=== PATIENT | female | born 1930 | race Caucasian/White ===

== ENCOUNTER 2016-06-15 12:14 | Inpatient (IN) | payer OTHER, BC ==
--- NOTE | 2016-06-15 12:41 | CPEKG ---
Heart Rate: 107 RR Interval: 561 QRSD Interval: 90 QT Interval: 360 QTC Interval: 481 QRS [place]: -30 T Wave [place]: -85 EKG Severity - ABNORMAL ECG - EKG Impression: ATRIAL FIBRILLATION EKG Impression: LEFT AXIS DEVIATION EKG Impression: CONSIDER ANTEROSEPTAL INFARCT EKG Impression: ABNORMAL T, CONSIDER ISCHEMIA, DIFFUSE LEADS Electronically Signed By: Lavelle Villanueva 15-Jun-2016 20:26:03
--- NOTE | 2016-06-15 12:53 | EDPHY ---
H & P Stated Complaint: Sent by PCP for eval abnl EKG. Denies CP Time Seen by Provider: 06/15/16 12:52 - Personal History Current Tetanus Diphtheria and Acellular Pertussis (TDAP): Yes - Medical/Surgical History Hx Asthma: No Hx Chronic Respiratory Disease: No Hx Diabetes: No Hx Cardiac Disease: Yes Hx Renal Disease: No Hx Cirrhosis: No Hx Alcoholism: No Hx HIV/AIDS: No Hx Splenectomy or Spleen Trauma: No Other PMH: TIA, hx paroxysmal Afib, amyloid angiopathy, seizures, 2011- parathyroidectomy, basal cell removal on nose, - Social History Smoking Status: Never smoked Constitutional: Initial Vital Signs Temperature (C) 36.7 C 06/15/16 12:20 Heart Rate 101 H 06/15/16 12:20 Respiratory Rate 18 06/15/16 12:20 Blood Pressure 132/94 H 06/15/16 12:20 O2 Sat (%) 95 06/15/16 12:20 O2 Delivery Mode Room Air Allergies/Adverse Reactions: No Known Allergies Allergy (Verified 06/15/16 12:24) Home Medications: Medication Instructions Recorded Calcium Citrate W/Vit D [Citracal 2 each PO DAILY 04/08/13 + D] Cholecalciferol Vit D3 [Vitamin D3 2,000 units PO DAILY 04/08/13 1000 units (OTC)] Dabigatran Etexilate Mesyl 150 mg PO BID 04/08/13 [Pradaxa 150 MG (RX)] Hydrocortisone 1% [Hydrocortisone 1 nina TP PRN PRN 04/08/13 1% cream (OTC)] Metoprolol Succinate Xr [Toprol Xl] 12.5 mg PO HS 04/08/13 Medical Decision Making - Diagnostics Imaging Results: Imaging Impressions Chest X-Ray 06/15/16 13:09 Impression: Congestive heart failure. ED Course/Re-evaluation: CHIEF COMPLAINT: Atrial fibrillation. HISTORY OF PRESENT ILLNESS: The patient is an 85-year-old female with a remote history of atrial fibrillation who presents with atrial fibrillation that was first noticed on Sunday by her PCP. She was sent in to the ED today after an EKG showed t-wave changes. She is complaining of intermittent shortness of breath over the past week but has no other complaints. She denies chest pain, fever, recent sickness, cough. Her doctor started her on Metoprolol Sunday. She is not anticoagulated. REVIEW OF SYSTEMS: A 10 point review of systems was performed and is negative with the exception of the elements mentioned in the history of present illness. PHYSICAL EXAM: HR, BP, O2 Sat, RR. Temp noted General Appearance: Alert, well hydrated, appropriate, and non-toxic appearing. Head: Atraumatic without scalp tenderness or obvious injury Eyes: Pupils equal, round, reactive to light and accommodation, EOMI, no trauma , no injection. Ears: Clear bilaterally, no perforation, normal landmarks Nose: Atraumatic, no rhinorrhea, clear. Throat: There is no erythema or exudates, no lesions, normal tonsils, mucus membranes moist. Neck: Supple, 2+ carotid upstroke, nontender, no lymphadenopathy. Respiratory: No retractions, no distress, no wheezes, and no accessory muscle use. Lungs are clear to auscultation bilaterally. Cardiovascular: Irregularly irregular, no murmurs, rubs, or gallops. Bilateral carotid, radial, dorsalis pedis, and posterior tibial pulses intact. Good capillary refill all extremities. Gastrointestinal: Abdomen is soft, nontender, non-distended, no masses, no rebound, no guarding, no peritoneal signs. Musculoskeletal: Normal active ROM of all extremities, atraumatic. Neurological: Alert, appropriate, and interactive. The patient has normal DTRs and non-focal cranial nerves, motor, sensory, and cerebellar exam. Skin: No rashes, good turgor, no nodules on palpation. Past medical history: Atrial fibrillation, TIA, amyloid angiopathy, seizures. Past surgical history: Parathyroidectomy, basal cell carcinoma removal. Social history: . DIAGNOSTICS/PROCEDURES/CRITICAL CARE TIME: The 12 lead EKG was interpreted by myself. See hard copy and/or "tracemaster" electronic copy for interpretation. Atrial fibrillation. Ischemic t-wave changes in anterolateral leads compared to previous EKG from 2013. DIFFERENTIAL DIAGNOSIS: The differential diagnosis for the patient's shortness of breath and hypoxemia included but was not limited to pneumonia, myocardial infarction, acute mountain sickness, high altitude pulmonary edema, congestive heart failure, and pulmonary embolus. MEDICAL DECISION MAKIN-year-old female presents from her PCP for atrial fibrillation and recent EKG changes. She does have a remote history of atrial fibrillation diagnosed by Dr. Mcdermott. Her EKG today compared to a previous EKG from 2013 shows ischemic T- waves in the anterolateral leads. We will check cardiac labs. An IV was established. Chest x-ray obtained. BNP elevated at 4700. I consulted with Dr. Ramírez, cardiology. We discussed work up so far. He recommends admission I consulted with Dr. Sanders who accepts admission. - Data Points Laboratory Results: Laboratory Results 06/15/16 12:55 06/15/16 12:55 06/15/16 06/15/16 12:55 12:55 WBC 7.61 10^3/uL 10^3/uL (3.80-9.50) RBC 5.07 10^6/uL 10^6/uL (4.18-5.33) Hgb 15.4 g/dL g/dL (12.6-16.3) Hct 45.7 % % (38.0-47.0) MCV 90.1 fL fL (81.5-99.8) MCH 30.4 pg pg (27.9-34.1) MCHC 33.7 g/dL g/dL (32.4-36.7) RDW 15.4 % H % (11.5-15.2) Plt Count 206 10^3/uL 10^3/uL (150-400) MPV 10.5 fL fL (8.7-11.7) Neut % (Auto) 75.8 % H % (39.3-74.2) Lymph % (Auto) 15.5 % % (15.0-45.0) [place] % (Auto) 7.5 % % (4.5-13.0) Eos % (Auto) 0.7 % % (0.6-7.6) Baso % (Auto) 0.1 % L % (0.3-1.7) Nucleat RBC Rel Count 0.0 % % (0.0-0.2) Absolute Neuts (auto) 5.77 10^3/uL 10^3/uL (1.70-6.50) Absolute Lymphs (auto) 1.18 10^3/uL 10^3/uL (1.00-3.00) Absolute Monos (auto) 0.57 10^3/uL 10^3/uL (0.30-0.80) Absolute Eos (auto) 0.05 10^3/uL 10^3/uL (0.03-0.40) Absolute Basos (auto) 0.01 10^3/uL L 10^3/uL (0.02-0.10) Absolute Nucleated RBC 0.00 10^3/uL 10^3/uL (0-0.01) Immature Gran % 0.4 % % (0.0-1.1) Immature Gran # 0.03 10^3/uL 10^3/uL (0.00-0.10) Sodium 140 mEq/L mEq/L (134-144) Potassium 4.2 mEq/L mEq/L (3.5-5.2) Chloride 104 mEq/L mEq/L (97-110) Carbon Dioxide 25 mEq/l mEq/l (22-31) Anion Gap 11 mEq/L mEq/L (8-16) BUN 27 mg/dL H mg/dL (7-23) Creatinine 1.0 mg/dL mg/dL (0.6-1.0) Estimated GFR 53 Glucose 102 mg/dL H mg/dL (70-100) Calcium 9.7 mg/dL mg/dL (8.5-10.4) Magnesium 1.9 mg/dL mg/dL (1.6-2.3) Troponin I 0.014 ng/mL ng/mL (0-0.034) NT-Pro-B Natriuret Pep 4700 pg/mL H pg/mL (0-450) Departure - Departure Disposition: [facility] Inpatient Acute Clinical Impression: Atrial fibrillation with rapid ventricular response, Acute electrocardiogram changes CHF (congestive heart failure) Qualifiers: Congestive heart failure type: unspecified congestive heart failure type Congestive heart failure chronicity: unspecified congestive heart failure chronicity Qualified Code(s): I50.9 - Heart failure, unspecified Condition: Fair Referrals: Nan Lal MD [Primary Care Provider] - As per Instructions Report Scribed for: Lavelle Villanueva Report Scribed by: Bryan Appiah Date of Report: 06/15/16 Time of Report: 14:08
[2016-06-15 13:24] LABS: % IMMATURE GRANULYOCYTES 0.4 % (0.0-1.1); ABSOLUTE IMMATURE GRANULOCYTES 0.03 10^3/uL (0.00-0.10); ADD DIFF? NO; HEMATOCRIT 45.7 % (38.0-47.0); HEMOGLOBIN 15.4 g/dL (12.6-16.3); MEAN CELL HEMOGLOBIN 30.4 pg (27.9-34.1); MEAN CELL HEMOGLOBIN CONCENTR. 33.7 g/dL (32.4-36.7); MEAN CELL VOLUME 90.1 fL (81.5-99.8); MEAN PLATELET VOLUME 10.5 fL (8.7-11.7); PLATELET COUNT 206 10^3/uL (150-400); RED BLOOD CELL COUNT 5.07 10^6/uL (4.18-5.33); RED CELL DISTRIBUTION WIDTH 15.4 % (11.5-15.2)
[2016-06-15 13:25] LABS: ADD MORPH? NO; ADD SCAN? NO; ATYPICAL LYMPHOCYTE FLAG 0 (0-99); FRAGMENT RBC FLAG 0 (0-99); LEFT SHIFT FLG 0 (0-99); LIPEMIA HEMOLYSIS FLAG 80 (0-99); PLATELET CLUMPS FLAG 10 (0-99)
[2016-06-15 13:28] LABS: ANION GAP 11 mEq/L (8-16); CARBON DIOXIDE 25 mEq/l (22-31); CHLORIDE 104 mEq/L (97-110); POTASSIUM 4.2 mEq/L (3.5-5.2); SODIUM 140 mEq/L (134-144)
[2016-06-15 13:29] LABS: CALCIUM 9.7 mg/dL (8.5-10.4); GLOMERULAR FILTRATION RATE 53; GLUCOSE 102 mg/dL (70-100); MAGNESIUM 1.9 mg/dL (1.6-2.3)
[2016-06-15 13:40] LABS: TROPONIN I 0.014 ng/mL (0-0.034)
[2016-06-15] MEDS: NS 500 ML IV SCH ×2 (14:30→16:01)
[2016-06-15] MEDS ORDERED: ONDANSETRON 4 MG/2 ML VIAL IVP PRN (14:56)
[2016-06-15] MEDS ORDERED: ACETAMINOPHEN 325 MG TAB PO PRN (14:56)
[2016-06-15] MEDS ORDERED: ONDANSETRON DISINTEGRATING 4 MG TAB PO PRN (14:56)
[2016-06-15] MEDS ORDERED: METOPROLOL TARTRATE 25 MG TAB PO ONE (14:59)
[2016-06-15] MEDS ORDERED: FUROSEMIDE 20 MG/2 ML VIAL IVP ONE (15:00)
--- NOTE | 2016-06-15 15:32 | GHP ---
[f rep st] HISTORY AND PHYSICAL DATE OF ADMISSION: 06/15/2016 CHIEF COMPLAINT: Atrial fibrillation with RVR. HISTORY OF PRESENT ILLNESS: This is an 85-year-old female who was sent in by her primary care physi luis for atrial fibrillation. She went to have her ears checked on Sunday, and physician noted that to her heart was rapid. She was then sent down immediately to see her PCP, Dr. Lal, on Sunday. At that point, Dr. Lal noted that she was in atrial fibrillation, started metoprolol. She had a followup today where her PCP noted that her EKG showed ischemic-appearing T-waves which were new. She was thus sent to the ED for further workup. She has no chest pain. She notes that since she w as told that she was in atrial fibrillation she has been very short of breath with minimal exertion. She does not think that this began before she knew she was in atrial fibrillation however. Last w port gamble she was able to walk quite a distance at her normal pace. She is normally quite active. She buenrostro s had no nausea or vomiting associated with this. She has been in atrial fibrillation in the past, at one point was on Pradaxa. She has also had what sounds as though an intracerebral hemorrhage, sh e tells me 8 years ago, nothing since. She is currently not on Pradaxa. She made the decision with Dr. Mcdermott to stop that years ago. She was only on it for a very short period of time as well. PAST MEDICAL/SURGICAL HISTORY: 1. Atrial fibrillation. 2. Carotid artery stenosis, 50%. 3. Hyperparathyroid, status post parathyroidectomy in 2010. 4. Possible amyloid angiopathy. 5. History of seizures, currently off antiepileptics. MEDICATIONS: Please see medication reconciliation. ALLERGIES: None. FAMILY HISTORY: Parents are . SOCIAL HISTORY: She never drank nor smoked. She lives with her . REVIEW OF SYSTEMS: 10-point review of systems is conducted and is negative except per HPI. PHYSICAL EXAMINATION: VITAL SIGNS: Blood pressure is 139/103, heart rate 100, respiration rate 16, saturating 93% on room air. Temperature is 36.7. GENERAL: The patient is a very pleasant female who is resting in bed comfortably in no acute distress. HEENT: Her mucous membranes to be moist. C ARDIOVASCULAR: Irregularly irregular. She is borderline tachycardic. I do not appreciate any murmu rs, rubs, or gallops. PULMONARY: Her to have mild basilar rales. She is in no respiratory distres s. ABDOMEN: Soft, nontender, nondistended. SKIN: No rash. : No [place]. NEUROLOGIC: Cranial nerve s 2-12 to be intact. She is A and O x3. Motor and sensation to light touch are intact to the upper and lower extremities. PSYCHIATRIC: Normal mood and affect. LABORATORY DATA: CBC is really unremarkable. Basic metabolic panel is normal. Troponin is negative . BNP is 4700. DATA: 1. I personally viewed and interpreted her EKGs. The 1 from today shows her to be in atrial fibrill ation, which is new. She also has significant T-wave inversions in leads V3 and V4. She also has in verted T-waves in inferior leads. 2. Chest x-ray, which I personally viewed and interpreted, shows pulmonary vascular congestion, wor se in the lower lung barrera than the upper. She has pleural effusions as well. IMPRESSION AND PLAN: An 85-year-old female with recurrence of atrial fibrillation in the setting of congestive heart failure and ischemic appearing T-waves on the EKG. 1. Atrial fibrillation: She has had this before but not for some time. She is borderline tachycar dic. She was started on metoprolol 12.5 p.o. twice daily which she has tolerated. I will increase her to 25 p.o. twice daily, and follow her rate. We will wait to discuss with Dr. Ramírez regarding an ticoagulation, possible SAEED cardioversion. As above, she has a history of an intracerebral hemorrha ge and possible amyloid angiopathy. 2. Congestive heart failure: Unclear if this is systolic or diastolic, but it is acute. She has b een getting much more short of breath. I have ordered an echocardiogram. I have given her 1 dose o f furosemide. We will follow this clinically. 3. Ischemic-appearing EKG: As above, will discuss with Dr. Ramírez regarding invasive versus noninvas renzo ischemic evaluation. I will trend troponins. Will check an EKG in the morning. Hopefully show her rate will have slowed at that point, to see if this is rate-related ischemia. 4. History of seizure disorder: She did not tolerate Keppra and is currently off. 5. History of likely transient ischemic attack. 6. Code status: Discussed with her. She and her have both decided to be a do not resuscit ate. I placed this in her chart. 7. Venous thromboembolism risk: She is moderate. However, she is admitted as observation and she m ay need full-dose anticoagulation. I will not start anything at this point, but this may need to be started. /[id number]/MODL
[2016-06-15] MEDS: METOPROLOL TARTRATE 25 MG TAB PO SCH (20:39)
[2016-06-15] MEDS: CALCIUM CARBONATE 500 MG TAB PO SCH (20:40)
[2016-06-16 05:19] LABS: % IMMATURE GRANULYOCYTES 0.4 % (0.0-1.1); ABSOLUTE IMMATURE GRANULOCYTES 0.02 10^3/uL (0.00-0.10); ADD DIFF? NO; ADD MORPH? NO; ADD SCAN? NO; ATYPICAL LYMPHOCYTE FLAG 0 (0-99); FRAGMENT RBC FLAG 0 (0-99); HEMATOCRIT 37.8 % (38.0-47.0); HEMOGLOBIN 12.7 g/dL (12.6-16.3); LEFT SHIFT FLG 0 (0-99); LIPEMIA HEMOLYSIS FLAG 80 (0-99); MEAN CELL HEMOGLOBIN 30.8 pg (27.9-34.1); MEAN CELL HEMOGLOBIN CONCENTR. 33.6 g/dL (32.4-36.7); MEAN CELL VOLUME 91.5 fL (81.5-99.8); MEAN PLATELET VOLUME 10.6 fL (8.7-11.7); PLATELET CLUMPS FLAG 0 (0-99); PLATELET COUNT 163 10^3/uL (150-400); RED BLOOD CELL COUNT 4.13 10^6/uL (4.18-5.33); RED CELL DISTRIBUTION WIDTH 15.2 % (11.5-15.2)
[2016-06-16 05:35] LABS: ANION GAP 6 mEq/L (8-16); CALCIUM 8.6 mg/dL (8.5-10.4); CARBON DIOXIDE 26 mEq/l (22-31); CHLORIDE 107 mEq/L (97-110); CREATININE 0.9 mg/dL (0.6-1.0); GLOMERULAR FILTRATION RATE 59; GLUCOSE 81 mg/dL (70-100); POTASSIUM 3.5 mEq/L (3.5-5.2); SODIUM 139 mEq/L (134-144)
[2016-06-16] MEDS: CALCIUM CARBONATE 500 MG TAB PO SCH ×2 (08:32→22:16)
[2016-06-16] MEDS: METOPROLOL TARTRATE 25 MG TAB PO SCH ×2 (08:32→22:16)
[2016-06-16] MEDS: CYANO/VITAMIN B12 1000 MCG TAB PO SCH (08:32)
[2016-06-16] MEDS ORDERED: FUROSEMIDE 40 MG/4 ML VIAL IVP ONE (09:27)
--- NOTE | 2016-06-16 09:40 | CPEKG ---
Heart Rate: 86 RR Interval: 698 QRSD Interval: 90 QT Interval: 392 QTC Interval: 469 QRS [place]: -16 T Wave [place]: -85 EKG Severity - ABNORMAL ECG - EKG Impression: ATRIAL FIBRILLATION EKG Impression: BORDERLINE LEFT AXIS DEVIATION EKG Impression: CONSIDER ANTEROSEPTAL INFARCT EKG Impression: ABNORMAL T, PROBABLE ISCHEMIA, WIDESPREAD Electronically Signed By: Dio Morel 16-Jun-2016 16:25:30
--- NOTE | 2016-06-16 10:39 | ECHO ---
[id number] + + [address] : : [place] [address] : : [phone] + + Adult Echocardiographic Report + + :Name: MONIKA GARCIA FStudy Date: 06/16/2016 08:36 AM : : Hospital Admission Number: [id number] Loc ation: 203: :: 1930 Gender: Female Height: 66 in : :Age: 85 yrs Race: WH Weight: 120 lb : :Reason For Study: Eval LV Fx : : BSA: 1.6 me ters2 : :History: New onset of Atrial fibrillation : + + MMode/2D Measurements \T\ Calculations IVSd: 0.97 cm LVIDd: 4.4 cm FS: 28.4 % MV Diam: 2.9 cm LVPWd: 1.0 cm LVIDs: 3.1 cm EDV(Teich): 86.4 ml ESV(Teich): 38.8 ml EF(Teich): 55.1 % Ao root diam: 3.0 cm LVOT diam: 1.9 cm ACS: 1.7 cm LVOT area: 2.8 cm2 LA dimension: 3.2 cm Normal Measurement Values: + + :LVIDd (3.5-5.7cm) IVSd (0.6-1.1cm) LVPWd (0.6-1.1cm) Aortic Root (2.0-3.7cm)Left Atrium (1.5-4.0cm): :LV Vol(d) (76-115ml) LV Vol(s) (29-48ml) Ejec Fraction (50-65%)PV Rigoberto (0.6- 1.2m/s) TV Rigoberto (0.4-1.0m/s) : :MV E Rigoberto (0.8-1.0m/s)MV A Rigoberto (0.3-1.0m/s)LVOT Rigoberto (0.7-1.2m/s) Asc Ao Rigoberto ( 0.9-1.8m/s) : + + Doppler Measurements \T\ Calculations MV E max rigoberto: MV V2 max: Ao mean PG: AI max rigoberto: 75.0 cm/sec 131.7 cm/sec 3.5 mmHg 488.7 cm/sec MV max P.9 mmHg Ao V2 mean: AI max P.5 mmHg MV V2 mean: 87.3 cm/sec AI dec slope: 76.3 cm/sec Ao V2 VTI: 24.3 cm229.5 cm/sec2 MV mean P.7 mmHgAVA(I,D): 1.4 cm2 AI P1/2t: 623.6 msec MV V2 VTI: 34.1 cm MV area (1 diam): 6.6 cm2 MVA(VTI): 1.0 cm2 MV Flow area(1diam): 6.6 cm2 LV V1 mean PG: MR max rigoberto: MR(RF 1 diam): SV(MV 1 diam): 0.88 mmHg 533.3 cm/sec 9.4 % 225.2 ml LV V1 mean: MR max PG: SI(MV 1 diam): 42.4 cm/sec 113.8 mmHg 139.9 ml/m2 LV V1 VTI: 12.1 cm SV(LVOT): 34.3 ml PA V2 max: TR max rigoberto: RF(MV,Ao)(1 diam): 51.6 cm/sec 262.0 cm/sec 0.22 PA max PG: TR max P.5 mmHgRF(MV,LVOT) 1.1 mmHg RAP systole: (1diam): 0.85 10.0 mmHg RVSP(TR): 37.5 mmHg Left Ventricle The left ventricle is normal in size. There is normal left ventricular wall thickness. Left ventricular systolic function is low normal. Ejection Fraction = 55%. Right Ventricle The right ventricle is normal in size and function. Atria The left atrium is mildly dilated. Right atrial size is normal. Mitral Valve The mitral valve is normal. There is no evidence of mitral valve prolapse. There is no mitral valve stenosis. There is moderate mitral regurgitation. Tricuspid Valve Normal tricuspid valve. There is mild to moderate tricuspid regurgitation. Right ventricular systolic pressure is normal. Aortic Valve The aortic valve is trileaflet. The aortic valve opens well. There is no aortic stenosis. Mild to moderate aortic regurgitation. Pulmonic Valve The pulmonic valve is normal in structure and function. Trace pulmonic valvular regurgitation. Great Vessels The aortic root is normal size. Pericardium/Pleural There is no pericardial effusion. The rhythm is atrial fibrillation. Conclusion A complete two-dimensional transthoracic echocardiogram was performed (2D, M-mode, Doppler and color flow Doppler). Left ventricular systolic function is low normal. Ejection Fraction = 55%. The right ventricle is normal in size and function. The left atrium is mildly dilated. There is moderate mitral regurgitation. There is mild to moderate tricuspid regurgitation. Right ventricular systolic pressure is normal. The aortic valve is trileaflet. Mild to moderate aortic regurgitation. Trace pulmonic valvular regurgitation. The aortic root is normal size. There is no pericardial effusion. The rhythm is atrial fibrillation. Final Reading Physician: Jeannine Gusman signed on 06/16/2016 10:38 AM Ordering Physician: Davin Sanders Performed By: Uriel Forrester, SETHCS
--- NOTE | 2016-06-16 15:10 | PDCARCONS ---
Cardiology Consult Reason for Consult: Atrial fibrillation Chief Complaint: Slight decrease in stamina Requesting Physician: Jaime History of Present Illness: 85-year-old female with known history of paroxysmal atrial fibrillation complicated by TIA and intracranial bleeding. Patient has been offered anticoagulation in the past, in 2013 she had a trial of Pradaxa but discontinued this based on her research, advanced age, presence of amyloid small vessel disease and concern for recurrent intracranial bleeding. She has done well from a cardiac point of view since that time. Risk for atrial fibrillation included moderate mitral regurgitation mild to moderate aortic regurgitation, LV dilatation. About 2 weeks ago she began noticing a decrease in stamina. She describes herself as a runner, going up and downstairs taking care of her home. She began becoming more short of breath going up the stairs. She denies angina. She has had no PND orthopnea. She denies syncope or near syncope. She denies palpitations. On admission to the hospital she was found to be in recurrent atrial fibrillation with a rapid ventricular response. Her chest x-ray suggested increased vascular markings concerning for heart failure. Metabolic profile did reveal a modestly elevated brain atretic peptide. Cardiac enzymes are negative. I am asked to comment on anticoagulation, yo cardioversion, alternative strategies. On my arrival she is resting comfortably without complaints. She feels with a small amount of supplemental oxygen she has felt much better. She has been diuresing aggressively. She feels back to her baseline today. She denies fever or chills. She has no abdominal pain, diarrhea or constipation. She has no headache, change in vision, change in motor or sensory function. History Information - Allergies/Home Medication List Allergies/Adverse Reactions: No Known Allergies Allergy (Verified 06/15/16 12:24) Home Medications: Calcium Carbonate [Calcium] 500 mg PO BID 06/15/16 [Last Taken 06/15/16] Cholecalciferol Vit D3 [Vitamin D3 (*)] 2,000 units PO DAILY 06/15/16 [Last Taken 06/15/16] Cyanocobalamin [Vitamin B12 (*)] 1,000 mcg PO DAILY 06/15/16 [Last Taken ] Metoprolol Tartrate [Lopressor 25 mg (*)] 25 mg PO BID 06/15/16 [Last Taken 05/29] I have personally reviewed and updated: medical history - Past Medical History atrial fibrillation - Family History Positive for: non-pertinent - Social History Smoking Status: Never smoked Cardiac History - Cardiac History Cardiac Risk Factors: age > 65 Age in Years: 75 or older Sex: Female Congestive Heart Failure History: No Hypertension History: No Stroke/TIA/Thromboembolism History: Yes Vascular Disease History: No Diabetes Mellitus: No [id number] Score: 5{ Physical Exam Temp Pulse Resp BP Pulse Ox 36.4 C 90 16 141/81 H 97 06/16/16 12:00 06/16/16 12:00 06/16/16 12:00 06/16/16 12:00 06/16/16 12:00 O2 (L/minute) 2 Constitutional: no apparent distress, appears nourished Eyes: anicteric sclera Ears, Nose, Mouth, Throat: moist mucous membranes Cardiovascular: systolic murmur, irregularly irregular, No JVD Peripheral Pulses: 1+: carotid (R), carotid (L), femoral (R), femoral (L) Respiratory: no respiratory distress, no rales or rhonchi, No expiratory wheeze Gastrointestinal: normoactive bowel sounds, soft, non-tender abdomen Genitourinary: no bladder fullness Skin: warm, normal color, no rashes or abrasions Musculoskeletal: full muscle strength Neurologic: No weakness Psychiatric: interacting appropriately, not anxious Lymph, Heme, Immunologic: no cervical LAD, no supraclavicular LAD Lab and Imaging 06/16/16 03:57 06/16/16 03:57 WBC 5.59 10^3/uL (3.80-9.50) 06/16/16 03:57 RBC 4.13 10^6/uL (4.18-5.33) L 06/16/16 03:57 Hgb 12.7 g/dL (12.6-16.3) 06/16/16 03:57 Hct 37.8 % (38.0-47.0) L 06/16/16 03:57 MCV 91.5 fL (81.5-99.8) 06/16/16 03:57 MCH 30.8 pg (27.9-34.1) 06/16/16 03:57 MCHC 33.6 g/dL (32.4-36.7) 06/16/16 03:57 RDW 15.2 % (11.5-15.2) 06/16/16 03:57 Plt Count 163 10^3/uL (150-400) 06/16/16 03:57 MPV 10.6 fL (8.7-11.7) 06/16/16 03:57 Neut % (Auto) 66.5 % (39.3-74.2) 06/16/16 03:57 Lymph % (Auto) 21.5 % (15.0-45.0) 06/16/16 03:57 [place] % (Auto) 10.0 % (4.5-13.0) 06/16/16 03:57 Eos % (Auto) 1.4 % (0.6-7.6) 06/16/16 03:57 Baso % (Auto) 0.2 % (0.3-1.7) L 06/16/16 03:57 Nucleat RBC Rel Count 0.0 % (0.0-0.2) 06/16/16 03:57 Absolute Neuts (auto) 3.72 10^3/uL (1.70-6.50) 06/16/16 03:57 Absolute Lymphs (auto) 1.20 10^3/uL (1.00-3.00) 06/16/16 03:57 Absolute Monos (auto) 0.56 10^3/uL (0.30-0.80) 06/16/16 03:57 Absolute Eos (auto) 0.08 10^3/uL (0.03-0.40) 06/16/16 03:57 Absolute Basos (auto) 0.01 10^3/uL (0.02-0.10) L 06/16/16 03:57 Absolute Nucleated RBC 0.00 10^3/uL (0-0.01) 06/16/16 03:57 Immature Gran % 0.4 % (0.0-1.1) 06/16/16 03:57 Immature Gran # 0.02 10^3/uL (0.00-0.10) 06/16/16 03:57 Sodium 139 mEq/L (134-144) 06/16/16 03:57 Potassium 3.5 mEq/L (3.5-5.2) 06/16/16 03:57 Chloride 107 mEq/L (97-110) 06/16/16 03:57 Carbon Dioxide 26 mEq/l (22-31) 06/16/16 03:57 Anion Gap 6 mEq/L (8-16) L 06/16/16 03:57 BUN 29 mg/dL (7-23) H 06/16/16 03:57 Creatinine 0.9 mg/dL (0.6-1.0) 06/16/16 03:57 Estimated GFR 59 06/16/16 03:57 Glucose 81 mg/dL (70-100) 06/16/16 03:57 Calcium 8.6 mg/dL (8.5-10.4) 06/16/16 03:57 Magnesium 1.9 mg/dL (1.6-2.3) 06/15/16 12:55 Troponin I 0.014 ng/mL (0-0.034) 06/16/16 00:15 NT-Pro-B Natriuret Pep 4700 pg/mL (0-450) H 06/15/16 12:55 TSH 3.400 uIU/mL (0.465-4.680) 06/15/16 12:55 Chest X-ray Interpretation: other (Mild cephalization of vessels without acute infiltrate. Normal cardiac silhouette) Visualized and Interpreted EKG results: Yes EKG additional interpertation: Atrial fibrillation with inferolateral ST depression and T-wave inversions. Echocardiogram: Normal LV function with [id number] mitral regurgitation, left ventricular dilatation with preserved systolic function, mild aortic regurgitation. A/P Assessment: Persistent atrial fibrillation of unknown duration initially associated with elevated ventricular response. Contraindications to anticoagulation including advanced age, amyloid angiopathy with history of intercerebral bleed. Elevation brain natretic peptide associated with minimal symptoms of heart failure. Plan: Discussed options for therapy including initiation of anticoagulation with YO cardioversion and continued anticoagulation for at least 30 days. At this point she would not like any invasive/aggressive procedures. She is well versed in anticoagulation at this point would agree to low-dose aspirin. She has done well with gentle diuretic therapy. Would identify dry weight and use diuretics p.r.n. for increasing weight or development of symptoms. Agree with up titration of beta-darlene for rate control. Continue close clinical follow- up. The patient fails to thrive would consider revisit anticoagulation for 30 days and YO cardioversion. She is at a significantly increased risk of recurrent TIA/CVA with a chads Vasc score of at least 5. I have discussed these options with her. We will see how she does with increased beta-darlene overnight along with OT PT therapy. Patient's valvular disease does not require further evaluation at this time. There is no evidence of acute coronary syndrome with negative cardiac enzymes and over 2 weeks of symptoms. Would not pursue further risk stratification at this point. 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 denies: cough, orthopnea, wheezing, hurts to breath Cardiac: lightheadedness. denies: chest pain, edema, irregular heart rate, palpitations, syncope Gastrointestinal/Abdominal: no symptoms reported Genitourinary: no symptoms Musculoskelatal: no symptoms Skin: no symptoms Neurological: no symptoms Hematologic/Lymphatic: no symptoms reported
[2016-06-16] MEDS ORDERED: POTASSIUM CL 20 MEQ TAB PO ONE (17:56)
--- NOTE | 2016-06-16 17:56 | HOSPPROG ---
Hospitalist Progress Note Assessment/Plan: Assessment: 85-year-old female presents with acute diastolic CHF in the setting of permanent atrial fibrillation with acute rapid ventricular response Plan: 1. Diastolic congestive heart failure exacerbation. Acute, evidenced by interstitial infiltrates and effusions, BNP of 4700, most likely secondary to diastolic dysfunction from AFib rate related reduction in cardiac output -given 40 mg of IV Lasix this afternoon, reduced 20 mg IV Lasix tomorrow, then suspect the patient will not require ongoing diuretics as the primary means of improvement include rate control -attempt better rate control with increased dose of metoprolol -echocardiogram demonstrating ejection fraction 55%, no focal wall motion abnormalities -patient continues to require 2 L nasal cannula oxygen, attempt to wean 2. Permanent atrial fibrillation. Acute rapid ventricular response, leading to rate-related diastolic CHF -discussed with Dr Hou, decision made not to DC cardiovert given that the rate is responding to metoprolol increased to 25 mg twice daily and a cardioversion would require patient to receive 1 month of systemic anticoagulation which she is currently declining given her past history of intra cranial hemorrhage -aspirin 81 mg daily for CVA prevention -continue monitor on telemetry overnight to gauge response to up titration of metoprolol, consider 37.5 mg twice daily tomorrow if rates persistently running greater than 100 Diet. Regular Prophylaxis. High risk patient, history of ICH, placed on SCDs Code. Do not resuscitate per patient Disposition. Anticipated discharge is 5/6, upgraded to inpatient admission status given that anticipated length stay is greater than 48 hours for reasonable medical necessity including acute diastolic congestive heart failure exacerbation in the setting of permanent atrial fibrillation with acute rapid ventricular response requiring ongoing IV diuretics as well as telemetry monitoring to ensure rate control with med modification. Subjective: Patient reports that she has been urinating almost constantly this afternoon Objective: Vital Signs Temp Pulse Resp BP Pulse Ox 36.4 C 90 16 141/81 H 97 06/16/16 12:00 06/16/16 12:00 06/16/16 12:00 06/16/16 12:00 06/16/16 12:00 Laboratory Results 06/16/16 03:57 06/16/16 03:57 06/15/16 06/16/16 06/17/16 05:59 05:59 05:59 Intake Total 590 Output Total 954 Balance 590 -954 - Time Spent With Patient Time Spent with Patient: greater than 35 minutes Time Spent with Patient: Greater than 35 minutes spent on this patients care, greater than 50% of time spent counseling, educating, and coordinating care regarding the above mentioned plan. - Physical Exam Constitutional: no apparent distress, appears nourished, not in pain Cardiovascular: irregularly irregular, tachycardia, No edema Respiratory: inspiratory crackles (Bilateral bases), No expiratory wheeze, No bronchial breath sounds Neurologic: AAOx3 Psychiatric: interacting appropriately, not anxious, not encephalopathic, thought process linear ICD10 Worksheet Patient Problems: Problems Problem Status Onset Acute electrocardiogram changes Acute Atrial fibrillation with rapid ventricular response Acute CHF (congestive heart failure) Acute Seizures Acute TIA (transient ischemic attack) Acute
[2016-06-17 05:19] LABS: ANION GAP 7 mEq/L (8-16); CALCIUM 8.8 mg/dL (8.5-10.4); CARBON DIOXIDE 28 mEq/l (22-31); CHLORIDE 105 mEq/L (97-110); CREATININE 0.9 mg/dL (0.6-1.0); GLOMERULAR FILTRATION RATE 59; GLUCOSE 85 mg/dL (70-100); MAGNESIUM 1.9 mg/dL (1.6-2.3); POTASSIUM 3.6 mEq/L (3.5-5.2); SODIUM 140 mEq/L (134-144)
[2016-06-17] MEDS ORDERED: POTASSIUM CL 20 MEQ TAB PO ONE (08:51)
--- NOTE | 2016-06-17 08:51 | HOSPPROG ---
Hospitalist Progress Note Assessment/Plan: A fib / RVR - rate controlled on oral metoprolol, pt has declined anti- coagulation. Cont ASA, BB. Acute diastolic heart failure - improved, but still a bit orthopneic, requiring 2 L O2, and has only minimally diuresed. Will cont lower dose of IV Lasix today and reassess status in am. Likely dc tomorrow, possibly off diuretics as it seems rate control was most important factor in managing her HF. Acute hypoxemic respiratory failure - cont IV Lasix for one more day, wean O2 as able. Dispo - cont inpt, poss dc in am DNR Subjective: Pt feels a bit better, but still reports some orthopnea and SOB, hard to get a full breath. No CP. No fevers. Objective: Vital Signs Temp Pulse Resp BP Pulse Ox 36.6 C 76 20 128/85 H 94 06/17/16 06:00 06/17/16 06:00 06/17/16 06:00 06/17/16 06:00 06/17/16 06:00 Laboratory Results 06/17/16 03:46 - Physical Exam Constitutional: no apparent distress Eyes: PERRL Ears, Nose, Mouth, Throat: moist mucous membranes Cardiovascular: regular rate and rhythym Respiratory: no respiratory distress, other (faint bibasilar crackles) Gastrointestinal: normoactive bowel sounds, soft, non-tender abdomen Skin: warm Musculoskeletal: full muscle strength Neurologic: AAOx3 Psychiatric: interacting appropriately ICD10 Worksheet Patient Problems: Problems Problem Status Onset Acute electrocardiogram changes Acute Atrial fibrillation with rapid ventricular response Acute CHF (congestive heart failure) Acute Seizures Acute TIA (transient ischemic attack) Acute
[2016-06-17] MEDS: FUROSEMIDE 20 MG/2 ML VIAL IVP SCH (09:10)
[2016-06-17] MEDS: ASPIRIN EC 81 MG TAB PO SCH (09:10)
[2016-06-17] MEDS: METOPROLOL TARTRATE 25 MG TAB PO SCH ×2 (09:10→20:46)
[2016-06-17] MEDS: CALCIUM CARBONATE 500 MG TAB PO SCH ×2 (09:10→20:46)
[2016-06-17] MEDS: CYANO/VITAMIN B12 1000 MCG TAB PO SCH (09:10)
[2016-06-18 05:25] LABS: ANION GAP 7 mEq/L (8-16); CALCIUM 9.1 mg/dL (8.5-10.4); CARBON DIOXIDE 30 mEq/l (22-31); CHLORIDE 103 mEq/L (97-110); CREATININE 0.9 mg/dL (0.6-1.0); GLOMERULAR FILTRATION RATE 59; GLUCOSE 93 mg/dL (70-100); POTASSIUM 4.5 mEq/L (3.5-5.2); SODIUM 140 mEq/L (134-144)
[2016-06-18] MEDS: FUROSEMIDE 20 MG/2 ML VIAL IVP SCH (07:56)
[2016-06-18] MEDS: CALCIUM CARBONATE 500 MG TAB PO SCH (07:56)
[2016-06-18] MEDS: ASPIRIN EC 81 MG TAB PO SCH (07:56)
[2016-06-18] MEDS: CYANO/VITAMIN B12 1000 MCG TAB PO SCH (07:56)
[2016-06-18] MEDS: METOPROLOL TARTRATE 25 MG TAB PO SCH (07:57)
[2016-06-18 08:23] VITALS: BP 119/88; PULSE 84; RESP 24; TEMP 97.3; O2SAT 93
--- NOTE | 2016-06-18 14:40 | GDS ---
[f rep st] DISCHARGE SUMMARY DISCHARGE DIAGNOSES: 1. Chronic atrial fibrillation with rapid ventricular response. 2. Acute on chronic diastolic heart failure. 3. Acute hypoxemic respiratory failure secondary to heart failure, resolved. IMAGING STUDIES/PROCEDURES: Echocardiogram, June 15, showed normal left ventricular systolic function with ejection fraction of 55%. Moderate mitral regurgitation and [id number] aortic regurgita tion. HISTORY: For details, please see dictated history and physical dated June 15. In brief, the patient is an 85-year-old female with a history of chronic atrial fibrillation who pre sented to the emergency department at the direction of her primary care physician for rapid atrial f ibrillation. She was also found to have mild acute heart failure and was admitted to the hospital f or further management. HOSPITAL COURSE: Patient was admitted to the Cardiac Telemetry Unit. She was started on metoprolol 12.5 mg p.o. twice daily. This was up-titrated to 37.5 mg p.o. twice daily for improved rate contr ol. Her heart rate has been mostly in the 80s to 90s, with a systolic blood pressure as low as 100/ 70. She seems to be tolerating this dose. She received 3 days of IV Lasix with improvement of her symptoms. A Cardiology consult was obtained and the patient was offered SAEED with cardioversion, tho ugh this would have required a month of anticoagulation. The patient declines anticoagulation. She repeatedly noted that she was DNR and did not want any invasive or aggressive procedures. Therefor e, no further cardiac risk stratification was performed and, as per our Cardiology consultation, her heart valve disease does not require any further evaluation. She has had no evidence of acute coron kobe syndrome with negative cardiac enzymes, and has remained chest pain free. She is stable for dis charge this morning and appears euvolemic. I have given her prescription for Lasix and asked that s he follow her daily weights and use the Lasix p.r.n. if her weight increases by 2-3 pounds to [place]ta in her dry weight. However, I think the bigger issue is rate control in terms of preventing heart f ailure symptoms. She needs to have close followup with her security representative and primary care provider. She agrees to call Dr. Ramírez in the morning for an appointment this week to reassess her rate contro l and volume status. She understands her stroke risk with a CHADS-VASc of 5, though has continued t o decline anticoagulation and is therefore discharged on daily aspirin. DISPOSITION: Patient is discharged home in stable condition. DISCHARGE MEDICATIONS: Please see [facility] for a complete updated outpatient medication list. New medications on discharge include: Aspirin 81 mg p.o. daily, #30, no refills. Lasix 20 mg p.o. daily p.r.n. for weight gain greater than 2-3 pounds. Changed medications include: Metoprolol 37.5 mg p.o. twice daily, #90, no refills. FOLLOWUP: 1. Dr. Clyde Ramírez in 2-3 days to reassess volume status and heart rate control. 2. Dr. Nan Lal, primary care provider. /[id number]/MODL
== END 2016-06-18 10:44 | disposition home or self-care (01) | DRG 308 ==
LOC: INTOOBSV 14:02 → F2W 15:14 → OBSVTOIN 06-16 17:53
PROVIDERS: ADMIT Student in an Organized Health Care Education/Training Program; ATTEND Hospitalist
DX: I48.2 Chronic atrial fibrillation (principal); I50.33 Acute on chronic diastolic (congestive) heart failure; J96.01 Acute respiratory failure with hypoxia; I34.0 Nonrheumatic mitral (valve) insufficiency; Z66 Do not resuscitate
CPT/HCPCS: G0378

== ENCOUNTER → 2017-01-24 | Outpatient (CLI) | payer OTHER, BC | LOC: BMCIMAGING 15:01 | PROVIDERS: ATTEND Internal Medicine | DX: Z13.820 Encounter for screening for osteoporosis (principal); M81.0 Age-related osteoporosis without current pathological fracture ==

== ENCOUNTER → 2017-03-27 | Outpatient (CLI) | payer OTHER, BC | LOC: BMCIMAGING 12:52 | PROVIDERS: ATTEND Internal Medicine | DX: K59.00 Constipation, unspecified (principal) ==

== ENCOUNTER → 2017-06-26 | Outpatient (CLI) | payer OTHER, BC | LOC: FIMAGING 16:33 | DX: I70.0 Atherosclerosis of aorta (principal); M79.606 Pain in leg, unspecified ==

== ENCOUNTER 2017-08-22 12:58 | Emergency (ER) | payer OTHER, BC ==
[2017-08-22] MEDS ORDERED: ASPIRIN 81 MG CHEWABLE TAB PO ONE (13:07)
--- NOTE | 2017-08-22 13:26 | EDPHY ---
H & P Time Seen by Provider: 08/22/17 13:01 HPI/ROS: HPI Speech disturbance, numbness right arm. 86-year-old female by private vehicle with her daughter. This patient has a history of atrial fibrillation. She is currently not on any anticoagulation. At approximately 10:00 a.m., the patient and daughter reports that the patient complained of numbness involving her right arm from her elbow down through her hand and digits. At this time she also had difficulty with word-finding and slurred speech. The symptoms lasted approximately 15 min and then have resolved. Her daughter tells me now that she is close to her baseline mental status and function. She had a similar episode to this on August 16 which also lasted about 10 min. She did not seek medical attention for that episode. 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 ROS: Constitutional: No fever, no chills. As above. Eyes: No discharge. No changes in vision. ENT: No sore throat. No nasal congestion or rhinorrhea. Respiratory: No cough. No shortness of breath. Cardiac: No chest pain, no palpitations. Gastrointestinal: No abdominal pain, no vomiting, no diarrhea. Genitourinary: No hematuria. No dysuria or increased frequency with urination. Musculoskeletal: No back pain. No neck pain. No myalgias or arthralgias. Skin: No rashes. Neurological: No headache. As above. Past medical history: Atrial fibrillation currently not on anticoagulation, carotid artery stenosis of 50%, hyperparathyroidism with parathyroidectomy, history of seizures currently not on antiepileptics, acute on chronic diastolic heart failure. She is a DNR. She is currently on Lasix and metoprolol. Social history: Nonsmoker. Currently here with her daughter. No alcohol. Physical Exam: General Appearance: Alert, pleasant 86-year-old female, no distress. This patient is responding to questions appropriately and in full sentences. This patient appears well-hydrated and well-nourished. Eyes: Pupils equal and round and reactive to light at 3-2 mm bilaterally, no pallor or injection. No lid edema, erythema or injection. ENT, Mouth: Mucous membranes are moist. The pharyngeal tissues are unremarkable. No edema or swelling. No asymmetry suggestive of abscess. No erythema or exudates. No tongue lacerations or abrasions. Respiratory: There are no retractions, lungs are clear to auscultation with good air movement bilaterally. Cardiovascular: Regular rate and rhythm. No murmur appreciated. Gastrointestinal: Abdomen is soft and nontender, no masses, bowel sounds normal. No focal tenderness at McBurney's point. No Ross sign. Neurological: Motor sensory function is grossly intact in all myotomes in dermatomes of the bilateral upper and bilateral lower extremities. Cranial nerves are normal. Gait is normal. Skin: Warm and dry, no rashes. Musculoskeletal: Neck is supple and nontender. Extremities are symmetrical. All joints range without pain or impingement. Psychiatric: No agitation. No depression. Database: EKG: EKG time is 1:25 p.m.; EKG shows a narrow complex normal sinus rhythm with a ventricular rate of 57. Left axis deviation noted. Probable left ventricular hypertrophy. The AL, QRS, QT intervals are within normal limits. There are no ST-T wave changes indicative of ischemic or injury pattern. No evidence of right heart strain. Interpreted by me. Imaging: CT scan of head without contrast: Age-related changes only. Otherwise negative study. Results were discussed with staff radiologist. Carotid artery Doppler ultrasounds: No hemodynamically significant stenosis noted. Please see report by reading radiologist for further details. I personally viewed the images and reviewed interpretation report. I did not speak with the radiologist personally. MRI brain without contrast: Bilateral micro hemorrhages that are not acute significant for for amyloid angiopathy. The patient has a history of this. Otherwise no acute infarction. No other significant abnormalities. Results were discussed with staff radiologist Dr. Pacheco Alfred. Procedures: Emergency department course: Triage vital signs reviewed. She is bradycardic at 52. She currently takes metoprolol at 37.5 mg twice daily. She was given 324 mg of chewed aspirin. I discussed imaging including CT scan of head without contrast as well as carotid artery Dopplers. She and her daughter consent. 1:55 p.m., patient re-evaluated. Discussed results of CT imaging. Discussed obtaining MRI brain without contrast. The patient and daughter consent. Repeat neurologic Assessment is nonfocal. 2:30 p.m., patient re-evaluated. Sitting upright on the gurney. Repeat neurologic Assessment is nonfocal. Results of blood work, EKG discussed. Waiting results on Doppler ultrasounds. Patient is requesting discharged after her MRI. 3:40 p.m., patient re-evaluated. Resting comfortably at this time. Repeat neurologic Assessment is nonfocal. Results of her MRI discussed with her. I did discuss admission for observation and neurology consultation. She does not want to do this. She is requesting discharge. Her daughter is in agreement with her being discharged. The patient competently engages in shared decision making. They demonstrate capacitance to make decisions. The patient will follow up with her neurologist, Dr. Koby Raman, or 1 of his partners later this week for re-evaluation. Return to emergency department precautions were thoroughly reviewed with her. All of her questions were answered. She was discharged from the emergency department in good condition. Differential Diagnosis: The differential diagnosis on this patient includes but is not limited to TIA. CVA, acute coronary syndrome, peripheral neuropathy, seizure unlikely. This represents a partial list of diagnoses considered. These considerations are based on history, physical exam, past history, reassessment and diagnostic testing. Smoking Status: Never smoked Constitutional: Initial Vital Signs Temperature (C) 36.4 C 08/22/17 13:06 Heart Rate 53 L 08/22/17 13:06 Respiratory Rate 16 08/22/17 13:06 Blood Pressure 128/95 H 08/22/17 13:06 O2 Sat (%) 94 08/22/17 13:06 O2 Delivery Mode Room Air Allergies/Adverse Reactions: No Known Allergies Allergy (Verified 06/15/16 12:24) Home Medications: Medication Instructions Recorded Calcium Carbonate [Calcium] 500 mg PO BID 06/15/16 Herbals/Supplements -Info Only 1 ea PO DAILY 06/17/16 Aspirin EC [Aspirin EC 81 mg (*)] 81 mg PO DAILY #30 tab 06/18/16 Furosemide [Lasix 20 MG (*)] 20 mg PO DAILY PRN #30 tab 06/18/16 Metoprolol Tartrate [Lopressor 25 37.5 mg PO BID #90 tab 06/18/16 mg (*)] Medical Decision Making - Diagnostics Imaging Results: Imaging Impressions Carotid Doppler Study 08/22/17 13:07 Impression: Mild interval increase of the peak systolic velocity in the left internal carotid artery. However, no hemodynamically significant stenosis is seen. Head CT 08/22/17 13:07 Impression: 1. Negative for acute intracranial process. 2. Age-appropriate generalized cerebral volume loss with sequelae of chronic microvascular ischemic disease. Brain MRI 08/22/17 13:51 Impression: 1. No acute infarct identified. 2. 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 Chronic bilateral microvascular ischemic white matter change. - Data Points Laboratory Results: Laboratory Results 08/22/17 13:30 08/22/17 13:30 08/22/17 08/22/17 08/22/17 13:31 13:30 13:30 WBC RBC Hgb Hct MCV MCH MCHC RDW Plt Count MPV Neut % (Auto) Lymph % (Auto) Star[place] % (Auto) Eos % (Auto) Baso % (Auto) Nucleat RBC Rel Count Absolute Neuts (auto) Absolute Lymphs (auto) Absolute Monos (auto) Absolute Eos (auto) Absolute Basos (auto) Absolute Nucleated RBC Immature Gran % Immature Gran # PT 14.5 SEC SEC (12.0-15.0) INR 1.11 (0.83-1.16) APTT 32.3 SEC SEC (23.0-38.0) Sodium 137 mEq/L mEq/L (135-145) Potassium 4.5 mEq/L mEq/L (3.3-5.0) Chloride 102 mEq/L mEq/L (97-110) Carbon Dioxide 28 mEq/l mEq/l (22-31) Anion Gap 7 mEq/L L mEq/L (8-16) BUN 24 mg/dL H mg/dL (7-23) Creatinine 1.1 mg/dL H mg/dL (0.6-1.0) Estimated GFR 47 Glucose 120 mg/dL H mg/dL (70-100) Calcium 9.7 mg/dL mg/dL (8.5-10.4) POC Troponin I 0.00 ng/mL ng/mL (0.00-0.08) 08/22/17 13:30 WBC 6.11 10^3/uL 10^3/uL (3.80-9.50) RBC 4.82 10^6/uL 10^6/uL (4.18-5.33) Hgb 14.6 g/dL g/dL (12.6-16.3) Hct 44.3 % % (38.0-47.0) MCV 91.9 fL fL (81.5-99.8) MCH 30.3 pg pg (27.9-34.1) MCHC 33.0 g/dL g/dL (32.4-36.7) RDW 14.1 % % (11.5-15.2) Plt Count 179 10^3/uL 10^3/uL (150-400) MPV 9.9 fL fL (8.7-11.7) Neut % (Auto) 61.3 % % (39.3-74.2) Lymph % (Auto) 28.6 % % (15.0-45.0) Star[place] % (Auto) 8.7 % % (4.5-13.0) Eos % (Auto) 1.0 % % (0.6-7.6) Baso % (Auto) 0.2 % L % (0.3-1.7) Nucleat RBC Rel Count 0.0 % % (0.0-0.2) Absolute Neuts (auto) 3.75 10^3/uL 10^3/uL (1.70-6.50) Absolute Lymphs (auto) 1.75 10^3/uL 10^3/uL (1.00-3.00) Absolute Monos (auto) 0.53 10^3/uL 10^3/uL (0.30-0.80) Absolute Eos (auto) 0.06 10^3/uL 10^3/uL (0.03-0.40) Absolute Basos (auto) 0.01 10^3/uL L 10^3/uL (0.02-0.10) Absolute Nucleated RBC 0.00 10^3/uL 10^3/uL (0-0.01) Immature Gran % 0.2 % % (0.0-1.1) Immature Gran # 0.01 10^3/uL 10^3/uL (0.00-0.10) PT INR APTT Sodium Potassium Chloride Carbon Dioxide Anion Gap BUN Creatinine Estimated GFR Glucose Calcium POC Troponin I Medications Given: Discontinued Medications Aspirin (Aspirin) 324 mg PO EDNOW ONE Stop: 08/22/17 13:08 Last Admin: 08/22/17 13:27 Dose: 324 mg Point of Care Test Results: Chemistry 08/22/17 13:31 POC Troponin I 0.00 ng/mL ng/mL (0.00-0.08) Departure - Departure Disposition: Home, Routine, Self-Care Clinical Impression: TIA (transient ischemic attack) Condition: Good Instructions: Transient Ischemic Attack (ED) Additional Instructions: Read and follow provided instructions. Follow-up with your neurologist, Dr. Koby Raman, or 1 of his partners within the next 1-2 days for re-evaluation as discussed. Call his office this afternoon for appointment time. Explained this is for an emergency department follow-up. Take your medication as prescribed. Return to the emergency department for worsening symptoms or other serious concerns. Referrals: Koby Raman MD [Medical Doctor] - As per Instructions
--- NOTE | 2017-08-22 13:27 | CPEKG ---
Heart Rate: 57 RR Interval: 1053 P-R Interval: 196 QRSD Interval: 88 QT Interval: 456 QTC Interval: 444 P [place]: 71 QRS [place]: -38 T Wave [place]: 36 EKG Severity - ABNORMAL ECG - EKG Impression: SINUS ARRHYTHMIA, RATE 50-66 EKG Impression: LEFT AXIS DEVIATION EKG Impression: PROBABLE LVH WITH SECONDARY REPOL ABNRM Electronically Signed By: Cb Quinn 22-Aug-2017 14:00:01
[2017-08-22 13:39] LABS: PLATELET COUNT 179 10^3/uL (150-400)
[2017-08-22 13:47] LABS: INR 1.11 (0.83-1.16); PROTIME(PATIENT) 14.5 SEC (12.0-15.0)
[2017-08-22 15:51] VITALS: BP 163/100
== END 2017-08-22 15:52 | disposition home or self-care (01) ==
DX: G45.9 Transient cerebral ischemic attack, unspecified (principal); Z79.82 Long term (current) use of aspirin
CPT/HCPCS: 84484-PO

== ENCOUNTER 2017-11-20 06:29 | Emergency (ER) | payer OTHER, BC ==
--- NOTE | 2017-11-20 06:38 | EDPHY ---
H & P Time Seen by Provider: 11/20/17 06:38 HPI/ROS: CHIEF COMPLAINT: Coughing all night HISTORY OF PRESENT ILLNESS: 86-year-old woman has been coughing for the past 4 days. She was awake for some of the night with a nonproductive cough. Not paroxysmal, no hemoptysis, no chest pain, not short of breath, no fever or leg swelling. Symptoms were severe last night but mild in the emergency department this morning. No history of choking or aspiration. Not better or worse with anything. No recent changes in medications. REVIEW OF SYSTEMS: Eye: no change in vision ENT: no sore throat Cardiac: no chest pain or syncope Pulmonary: HPI Abdomen: no vomiting, diarrhea, abdominal pain Musculoskeletal: no back pain Skin: no rash Neuro: no headache Constitutional: no fever : no urinary symptoms A comprehensive 10 point review of systems is otherwise negative aside from elements mentioned in the history of present illness. PAST MEDICAL HISTORY: Includes TIA, paroxysmal or intermittent AFib, seizure disorder. Admission in June of 2016 for diastolic heart failure and atrial fibrillation, history physical dated 06/15/2016 personally reviewed Social history: Nonsmoker, lives independently General Appearance: Alert and conversant, cooperative. Eyes: No scleral icterus. ENT, Mouth: Normal mucous membranes. Normal pharynx without angioedema or erythema. Respiratory: Normal respiratory effort, breath sounds equal, lungs are clear to auscultation. No wheezing or rales or rhonchi. Speaks in full sentences. Cardiovascular: Regular rate and rhythm. Gastrointestinal: Abdomen is soft and non tender. Neurological: Alert, face symmetric, normal motor and sensory in extremities. Skin: Warm and dry, no rashes. Musculoskeletal: No peripheral edema. No calf tenderness. Psychiatric: Not agitated. Emergency Department course/MDM: Patient presents with cough but does not have abnormal lung sounds. Afebrile with normal saturation. 715: Database reviewed includes normal O2 sat, not tachycardic, afebrile. WBC 6.3, normal electrolytes, troponin negative. Chest x-ray does not show infiltrate, EKG does not have acute ST changes and troponin is negative. I think that acute coronary syndrome is unlikely. That is the patient's main concern, that her coughing is or will result in a"heart problem." Reassured, cough medication, outpatient follow-up. Most likely viral URI. 733: Up ambulatory without difficulty or assistance in the hallway, able to easily speak in full sentences while walking. Smoking Status: Never smoked Constitutional: Initial Vital Signs Temperature (C) 36.7 C 11/20/17 06:34 Heart Rate 53 L 11/20/17 06:34 Respiratory Rate 16 11/20/17 06:34 Blood Pressure 181/83 H 11/20/17 06:34 O2 Sat (%) 95 11/20/17 06:34 O2 Delivery Mode Room Air Allergies/Adverse Reactions: No Known Allergies Allergy (Verified 06/15/16 12:24) Home Medications: Medication Instructions Recorded Calcium Carbonate [Calcium] 500 mg PO BID 06/15/16 Herbals/Supplements -Info Only 1 ea PO DAILY 06/17/16 Aspirin EC [Aspirin EC 81 mg (*)] 81 mg PO DAILY #30 tab 06/18/16 Furosemide [Lasix 20 MG (*)] 20 mg PO DAILY PRN #30 tab 06/18/16 Metoprolol Tartrate [Lopressor 25 37.5 mg PO BID #90 tab 06/18/16 mg (*)] Benzonatate [Tessalon Pearles (RX)] 100 mg PO Q8 PRN #15 cap 11/20/17 Medical Decision Making - Diagnostics EKG Interpretation: 12-lead EKG interpreted by me; official reading is in computer system. My interpretation is sinus rhythm with late anterior RS transition consistent with possible old [place], no acute ischemic changes Imaging Results: Imaging Impressions Chest X-Ray 11/20/17 06:34 Impression: No acute abnormality. Specifically, there is no current evidence of CHF. Negative chest x-ray for infiltrate or CHF personally interpreted Imaging: I viewed and interpreted images myself Differential Diagnosis: Differential for coughing considered including but not limited to bronchitis, pneumonia, pulmonary embolism, CHF, mi - Data Points Laboratory Results: Laboratory Results 11/20/17 06:30 11/20/17 06:30 11/20/17 11/20/17 11/20/17 06:46 06:30 06:30 WBC 6.36 10^3/uL 10^3/uL (3.80-9.50) RBC 4.80 10^6/uL 10^6/uL (4.18-5.33) Hgb 14.6 g/dL g/dL (12.6-16.3) Hct 44.1 % % (38.0-47.0) MCV 91.9 fL fL (81.5-99.8) MCH 30.4 pg pg (27.9-34.1) MCHC 33.1 g/dL g/dL (32.4-36.7) RDW 14.4 % % (11.5-15.2) Plt Count 181 10^3/uL 10^3/uL (150-400) MPV 10.0 fL fL (8.7-11.7) Neut % (Auto) 62.3 % % (39.3-74.2) Lymph % (Auto) 24.2 % % (15.0-45.0) [place] % (Auto) 10.5 % % (4.5-13.0) Eos % (Auto) 2.4 % % (0.6-7.6) Baso % (Auto) 0.3 % % (0.3-1.7) Nucleat RBC Rel Count 0.0 % % (0.0-0.2) Absolute Neuts (auto) 3.96 10^3/uL 10^3/uL (1.70-6.50) Absolute Lymphs (auto) 1.54 10^3/uL 10^3/uL (1.00-3.00) Absolute Monos (auto) 0.67 10^3/uL 10^3/uL (0.30-0.80) Absolute Eos (auto) 0.15 10^3/uL 10^3/uL (0.03-0.40) Absolute Basos (auto) 0.02 10^3/uL 10^3/uL (0.02-0.10) Absolute Nucleated RBC 0.00 10^3/uL 10^3/uL (0-0.01) Immature Gran % 0.3 % % (0.0-1.1) Immature Gran # 0.02 10^3/uL 10^3/uL (0.00-0.10) Sodium 142 mEq/L mEq/L (135-145) Potassium 4.0 mEq/L mEq/L (3.3-5.0) Chloride 101 mEq/L mEq/L (97-110) Carbon Dioxide 34 mEq/l H mEq/l (22-31) Anion Gap 7 mEq/L L mEq/L (8-16) BUN 21 mg/dL mg/dL (7-23) Creatinine 1.0 mg/dL mg/dL (0.6-1.0) Estimated GFR 52 Glucose 88 mg/dL mg/dL (70-100) Calcium 9.5 mg/dL mg/dL (8.5-10.4) POC Troponin I 0.01 ng/mL ng/mL (0.00-0.08) Medications Given: Discontinued Medications Benzonatate (Tessalon Pearles) 100 mg PO EDNOW ONE Stop: 11/20/17 07:06 Last Admin: 11/20/17 07:12 Dose: 100 mg Point of Care Test Results: Chemistry 11/20/17 06:46 POC Troponin I 0.01 ng/mL ng/mL (0.00-0.08) Departure - Departure Disposition: Home, Routine, Self-Care Clinical Impression: URI (upper respiratory infection) Qualifiers: URI type: unspecified viral URI Qualified Code(s): J06.9 - Acute upper respiratory infection, unspecified Condition: Good Instructions: Benzonatate (By mouth), Upper Respiratory Infection (ED) Referrals: Nan Lal MD [Primary Care Provider] - As per Instructions Prescriptions: Benzonatate [Tessalon Pearles (RX)] 100 mg PO Q8 PRN #15 cap PRN Reason: Cough, Moderate
[2017-11-20 06:40] LABS: PLATELET COUNT 181 10^3/uL (150-400)
[2017-11-20] MEDS ORDERED: BENZONATATE 100 MG CAP PO ONE (07:05)
[2017-11-20 07:14] VITALS: BP 139/75
--- NOTE | 2017-11-20 09:14 | CPEKG ---
Test Reason : OPEN Blood Pressure : / mmHG Vent. Rate : 051 BPM Atrial Rate : 051 BPM P-R Int : 190 ms QRS Dur : 093 ms QT Int : 487 ms P-R-T Axes : 044 -36 023 degrees QTc Int : 449 ms Sinus rhythm Anterior infarct, old Confirmed by Ross Garcia ([id number]) on 11/20/2017 9:14:31 AM Referred By: Confirmed By:Ross Garcia
== END 2017-11-20 07:31 | disposition home or self-care (01) ==
LOC: EDUNIT#
DX: J06.9 Acute upper respiratory infection, unspecified (principal)
CPT/HCPCS: 84484-PO